=== PATIENT | female | born 1965 | race Caucasian/White ===

== ENCOUNTER → 2018-10-06 14:46 | Outpatient (CLI) | payer OTHER ==
--- NOTE | 2018-10-13 14:51 | ST ---
PATIENT:HEATHER PERALTA MEDICAL RECORD: [id number] SEX: F LOCATION:[facility] ORDER #: ADMISSION DATE: 10/06/18 AGE OF PATIENT: 52 REFERRING PHYSICIAN: INTERPRETING PHYSICIAN: VANDANA GAXIOLA MD DATE OF SERVICE: 10/06/2018 PROCEDURE: Treadmill stress test. Baseline ECG is normal. Exercised for 10 minutes under Magdaleno protocol. Maximum heart rate 150 beats per minute, greater than 95% of maximum predicted. No ECG changes for ischemia. No symptoms of ischemia. Normal blood pressure response to exercise. No arrhythmias noted. Good exercise tolerance for age. TRANSINT:[id number] Voice Confirmation ID: [id number] DOCUMENT ID: [id number] VANDANA GAXIOLA MD at 1451 CC: [id number] DICTATION DATE: 10/12/18 141 ALL ROUND LOGGER: 10/12/180 DEP CLI 10/06/18 [facility] [address] [place] [address]
== END | disposition home or self-care (01) ==
LOC: D.HCCARDIO 14:46
DX: R06.09 Other forms of dyspnea (principal)

== ENCOUNTER 2018-11-09 20:18 | Emergency (ER) | payer OTHER ==
[~2018-11-09] VITALS: Ht 165.1 cm; Wt 75.0 kg
[2018-11-09 20:21] VITALS: Ht 165.1 cm; Wt 75.0 kg
[2018-11-09] MEDS ORDERED: LISINOPRIL5 MG PO (20:21)
[2018-11-09] MEDS ORDERED: LEXAPRO20 MG (20:22)
[2018-11-09] MEDS ORDERED: HCTZ25 MG (20:22)
[2018-11-09] MEDS ORDERED: OMEPRAZOLE20 M1 PO (20:22)
[2018-11-09] MEDS ORDERED: NEURONTIN600 MG PO (20:23)
[2018-11-09] MEDS ORDERED: NAPROSYN500 MG PO (20:23)
[2018-11-09] MEDS ORDERED: HYDROCODON-ACE1 EA10 PO (20:23)
[2018-11-09] MEDS ORDERED: BUPROPION HCL100 MG (20:23)
[2018-11-09] MEDS ORDERED: ACETAMINOPHEN500 M1 PO (21:59)
[2018-11-09] MEDS ORDERED: CYCLOBENZAPRINE10 MG PO (21:59)
[2018-11-09] MEDS ORDERED: IBUPROFEN800 MG PO (21:59)
[2018-11-09 22:42] VITALS: BP 132/79
== END 2018-11-09 22:42 | disposition home or self-care (01) ==
LOC: D.ER 20:18
DX: S46.001A Unspecified injury of muscle(s) and tendon(s) of the rotator cuff of right shoulder, initial encounter (principal); W01.0XXA Fall on same level from slipping, tripping and stumbling without subsequent striking against object, initial encounter; Y93.89 Activity, other specified; Y92.89 Other specified places as the place of occurrence of the external cause

== ENCOUNTER 2018-11-18 14:41 | Inpatient (IN) | payer OTHER ==
[~2018-11-18] VITALS: Ht 165.1 cm; Wt 77.3 kg
[~2018-11-18 14:41] MED LIST: ACETAMINOPHEN500 M1 PO; BUPROPION HCL100 MG; CYCLOBENZAPRINE10 MG PO; HCTZ25 MG; HYDROCODON-ACE1 EA10 PO; IBUPROFEN800 MG PO; LEXAPRO20 MG; LISINOPRIL5 MG PO; NAPROSYN500 MG PO; NEURONTIN600 MG PO; OMEPRAZOLE20 M1 PO
[2018-11-20 10:27] LABS: APPEARANCE CLOUDY (CLEAR); BILIRUBIN NEGATIVE (NEGATIVE); COLOR YELLOW (YELLOW); GLUCOSE NEGATIVE (NEGATIVE); HEMATOCRIT 42.9 % (36.0-48.0); HEMOGLOBIN 14.4 g/dL (12-16); KETONE NEGATIVE (NEGATIVE); MCH 29.1 pg (26.0-34.0); MCHC 33.6 g/dL (31.0-37.0); MCV 86.8 fL (80.0-100.0); MEAN PLATELET VOLUME 9.3 fL (7.4-10.4); NITRITE NEGATIVE (NEGATIVE); PROTEIN NEGATIVE (NEGATIVE); RBC 4.94 10x6/uL (4.00-5.40); RDW 14.6 % (11.5-14.5); SPECIFIC GRAVITY 1.015 (1.005-1.020); UROBILINOGEN NORMAL (NORMAL); WBC 8.9 10x3/uL (4.8-10.8)
[2018-11-20 10:34] LABS: ANION GAP 11.5 mmol/L (8-16); CALCIUM 8.6 mg/dL (8.5-10.1); CARBON DIOXIDE 28.3 mmol/L (21.0-32.0); CREATININE - SERUM 0.9 mg/dL (0.6-1.3); POTASSIUM - SERUM 3.8 mmol/L (3.5-5.1)
[2018-11-20 10:46] LABS: APTT 30.1 SECONDS (22.8-39.4); PROTIME 12.7 SECONDS (11.6-15.0)
[2018-11-23 11:02] VITALS: BP 124/75; BMI 28.3
[2018-11-23 11:21] LABS: HCG URINE NEGATIVE (NEGATIVE)
--- NOTE | 2018-11-23 13:20 | NUR ---
PLASMA BLADE SET AT 6/8 BOVIE PAD RIGHT THIGH [id number] EXP 05/11/2020
--- NOTE | 2018-11-23 14:25 | NUR ---
CARE ASSUMED FROM NATHALY TATE RN
--- NOTE | 2018-11-23 15:19 | NUR ---
1410 - TRANSITIONING PT TO PHASE 2 PROTOCOL. NO BEDS AVAILABLE.
[2018-11-24 01:09] VITALS: Ht 165.1 cm; Wt 77.3 kg
[2018-11-24 04:00] VITALS: BP 97/63
[2018-11-24 05:31] LABS: HEMOGLOBIN 10.8 g/dL (12-16); MCH 28.2 pg (26.0-34.0); MCHC 32.7 g/dL (31.0-37.0); MCV 86.2 fL (80.0-100.0); MEAN PLATELET VOLUME 9.2 fL (7.4-10.4); RBC 3.83 10x6/uL (4.00-5.40); WBC 14.5 10x3/uL (4.8-10.8)
--- NOTE | 2018-11-24 08:00 | NUR ---
PT IS WITHOUT NEEDS AT PRESENT. SHE IS WITHOUT DISTRESS
[2018-11-24 08:27] VITALS: BP 99/43
[2018-11-24] MEDS ORDERED: PERCOCET 10-321 EAC1 PO (11:55)
[2018-11-24] MEDS ORDERED: IBUPROFEN800 MG PO (11:55)
[2018-11-24 12:45] VITALS: BP 122/62
== END 2018-11-24 15:49 | disposition home or self-care (01) | DRG 483 ==
LOC: D.SDCHOLD 11-23 10:30 → D.MS 11-23 10:30 → D.SDCHOLD 11-23 13:00 → D.MS 11-23 20:00
PROVIDERS: Anesthesiology; ADMIT Orthopaedic Surgery; ATTEND Orthopaedic Surgery
PROC: 0RRJ00Z Replacement of Right Shoulder Joint with Reverse Ball and Socket Synthetic Substitute, Open Approach (ICD-10-PCS; principal; 2018-11-23 13:00)
DX: M12.811 Other specific arthropathies, not elsewhere classified, right shoulder (principal); M75.101 Unspecified rotator cuff tear or rupture of right shoulder, not specified as traumatic

== ENCOUNTER → 2018-11-18 16:09 | Outpatient (CLI) | payer OTHER ==
[2018-11-09 20:21] VITALS: BMI 27.5
== END | disposition home or self-care (01) ==
LOC: D.LABREF 16:09
PROVIDERS: ATTEND Orthopaedic Surgery
DX: M19.011 Primary osteoarthritis, right shoulder (principal); Z11.8 Encounter for screening for other infectious and parasitic diseases

== ENCOUNTER → 2019-01-06 16:08 | Outpatient (CLI) | payer OTHER ==
[2018-11-24 01:09] VITALS: BMI 28.3
[~2019-01-06 16:08] MED LIST changes: +PERCOCET 10-321 EAC1 PO
== END | disposition home or self-care (01) ==
LOC: D.MRI 16:08
PROVIDERS: ATTEND Orthopaedic Surgery
DX: S83.232A Complex tear of medial meniscus, current injury, left knee, initial encounter (principal)

== ENCOUNTER 2019-01-22 13:26 | Emergency (ER) | payer OTHER ==
[2019-01-22] MEDS ORDERED: NAPROSYN500 MG PO ×2 (13:33→15:22)
[2019-01-22] MEDS ORDERED: VALIUM 2 MG TAB2 MG PO (15:22)
[2019-01-22 16:20] VITALS: BP 143/79
== END 2019-01-22 16:00 | disposition home or self-care (01) ==
LOC: D.ER 13:26
DX: M62.838 Other muscle spasm (principal); S39.012A Strain of muscle, fascia and tendon of lower back, initial encounter; V43.62XA Car passenger injured in collision with other type car in traffic accident, initial encounter; Y93.89 Activity, other specified; Y92.410 Unspecified street and highway as the place of occurrence of the external cause; S29.012A Strain of muscle and tendon of back wall of thorax, initial encounter; S13.4XXA Sprain of ligaments of cervical spine, initial encounter

== ENCOUNTER → 2019-12-02 08:29 | Outpatient (CLI) | payer OTHER ==
[~2019-12-02 08:29] MED LIST changes: +VALIUM 2 MG TAB2 MG PO
== END | disposition home or self-care (01) ==
LOC: D.NM 08:29
PROVIDERS: ATTEND Orthopaedic Surgery
DX: M25.511 Pain in right shoulder (principal)

== ENCOUNTER → 2019-12-27 09:54 | Outpatient (CLI) | payer OTHER | END | disposition home or self-care (01) | LOC: D.MRI 09:54 | PROVIDERS: ATTEND Orthopaedic Surgery | DX: M54.12 Radiculopathy, cervical region (principal) ==

== ENCOUNTER 2020-02-10 10:20 | Inpatient (IN) | payer OTHER ==
[2020-02-08 12:14] LABS: HEMATOCRIT 41.9 % (36.0-48.0); HEMOGLOBIN 13.8 g/dL (12-16); MCH 28.3 pg (26.0-34.0); MCHC 32.9 g/dL (31.0-37.0); MEAN PLATELET VOLUME 8.7 fL (7.4-10.4); RBC 4.87 10x6/uL (4.00-5.40); RDW 13.9 % (11.5-14.5); WBC 6.2 10x3/uL (4.8-10.8)
[2020-02-08 12:23] LABS: CALC OSMOLALITY 277 mosm/kg (275-300); CALCIUM 9.2 mg/dL (8.5-10.1); CARBON DIOXIDE 32.4 mmol/L (21.0-32.0); CHLORIDE - SERUM 101 mmol/L (98-107); CREATININE - SERUM 0.8 mg/dL (0.6-1.3); GLUCOSE 82 mg/dL (74-106); POTASSIUM - SERUM 3.7 mmol/L (3.5-5.1); SODIUM 139 mmol/L (136-145); UREA NITROGEN 14 mg/dL (7-18); eGFR NON AFRICAN AMERICAN 79 mL/min (90-120)
[~2020-02-10] VITALS: Ht 165.1 cm; Wt 81.5 kg
[2020-02-10] VITALS (13 sets, daily range): BP systolic 96–133; BP diastolic 65–81; BMI 30.5; BMI 29.9
[~2020-02-10 10:20] MED LIST changes: -BUPROPION HCL100 MG; +BUPROPION HCL100 MG PO; -HCTZ25 MG; +HCTZ25 MG PO; -LEXAPRO20 MG; +LEXAPRO20 MG PO
[2020-02-10 11:51] LABS: HCG URINE NEGATIVE (NEGATIVE)
--- NOTE | 2020-02-10 16:21 | NUR ---
PT ARRIVED IN THE UNIT. PT HOOKED TO ICU MONITORS. VSS. PACU NURSE WITH THE PT FOR ABOUT 1 HOUR. LEFT ANTERIOR NECK INCISION AND MIDLINE POSTEIOR NECK INCISION DRESSING C/D/I. SMILE SYMITRICAL. BILATERAL UPPER AND LOWER TOWEL CABINET REPAIRER EQUAL. PT DENIES NUMBNESS/PAIN AT THIS TIME. TRACHEA MIDLINE. CALL LIGHT IN REACH. WILL CONT POC.
--- NOTE | 2020-02-10 17:00 | NUR ---
NOTIFIED PTS CAROLE OF NEW ROOM AND LOCATION. PT STABLE RESTING QUIETLY IN BED, TOLERATING ICE CHIPS. NO FURTHER PACU NEEDS, WILL PASS ON BEDSIDE REPORT TO MOHIT LEE.
--- NOTE | 2020-02-10 17:58 | NUR ---
PT TOLERATING ICE CHIPS WELL. NEUROCHECKS SAME PREVIOUS EXAM. WILL CONT POC.
--- NOTE | 2020-02-10 19:00 | NUR ---
REPORT RECEIVED. PT RESTING IN BED, NO ACUTE DISTRESS NOTED. INCISION SITES CDI. AAOX4, WILL CONTINUE TO MONITOR.
[2020-02-11] VITALS (11 sets, daily range): BP systolic 86–115; BP diastolic 59–69; Ht 165.1 cm; Wt 81.5 kg
--- NOTE | 2020-02-11 05:57 | NUR ---
2100 - PT RESTING IN BED, NO ACUTE DISTRESS NOTED. 2300 - REASSESSMENT COMPLETED. DRESSING CDI. 0100 - PT RESTING QUIETLY IN BED, WILL CONTINUE TO MONITOR. 0300 - REASSESSMENT COMPLETED. NO FURTHER COMPLAINTS AT THIS TIME. 0500 - PT SITTING UP IN BED, AAOX4. PT STATES FEELING "MUCH BETTER NOW."
--- NOTE | 2020-02-11 11:37 | NUR ---
0700 BEDSIDE REPORT RECEIVED FROM ROBIN RN INTRODUCED MYSELF AND PLACED NAME ON THE BOARD ASSESSMENT COMPLETE
--- NOTE | 2020-02-11 11:39 | NUR ---
1000 D/C GORDON UP TO BEDSIDE COMMODE WITH STANDBY ASSIST VOIDED 200 ML REPORT CALLED TO [facility] NURSE FOR ROOM [id number]
--- NOTE | 2020-02-11 11:41 | NUR ---
2907 TRANSPORTED PATIENT TO [facility] 2010
[2020-02-12 04:00] VITALS: BP 138/79
--- NOTE | 2020-02-12 08:00 | NUR ---
ALERT AND ORIENTED WITH DRESSING DRY AND INTACT TO ANTERIOR AND POSTERIOR CERVICAL SPINE. PAIN 8/10 MANAGED WITH NORCO ALTERMATING WITH MORPHINE.IV INTACT TO LEFT WRIST WITH NO S/S OF INFECTION/INFILTRATION. ENCOURAGED TO USE CALL LIGHT FOR ASSSIT. WITH BENCH WORKER HELPER PRESENT
[2020-02-12 08:27] VITALS: BP 167/52
[2020-02-12] MEDS ORDERED: TYLENOL W/CODEI1 TAB PO (09:04)
[2020-02-12] MEDS ORDERED: MEDROL DOSE PACK4 MG PO (10:21)
--- NOTE | 2020-02-12 11:15 | NUR ---
IV DISCONTINUED WITH DRESSING CHANGED TO POSTERIOR CERVICAL DRESSING WITH DEIRDRE INTACT W/O ANY S/S OF INFECTION. PATIENT DRESSED SELF AND UP AMBULATING STATING PAIN BETTER 3/10. VERBALIZD UNDERSTANDING OF DISCHARGE INSTRUCTIONS UNDER CARE OF CAREGIVER.
--- NOTE | 2020-02-12 19:19 | MORECARE ---
CASE MANAGEMENT DISCHARGE SUMMARY PATIENT: HETAHER NOLAN UNIT: [id number] ADM DATE: 02/10/20 AGE: 54 : 65 SEX: F ROOM/BED: D.2229 AUTHOR: FIDELINA THOMSON PHYSICIAN: REFERRING PHYSICIAN: GABRIELE JIMENEZ MD DATE OF SERVICE: 02/12/20 Discharge Plan Patient Name: HEATHER NOLAN Facility: [facility]:[place] : 1965 Planned Disposition: Home Anticipated Discharge Date: Discharge Date: 02/12/2020 Expected LOS: Initial Reviewer: [email or web address] Initial Review Date: 02/11/2020 Generated: 02/12/20 8:18 pm Comments DCP- Discharge Planning Updated by [email or web address]: Lucía Green on 02/12/20 6:[address] Patient Name: HEATHER NOLAN Admission Status: Elective Accout number: [id number] Admission Date: 02-10-2020 : 1965 Admission Diagnosis:RADICULOPATHY, CERVICAL REGION Attending: GABRIELE JIMENEZ Current LOS: 2 Anticipated DC Date: Planned Disposition: Home Primary Insurance: [employer] Discharge Planning Comments: CM met with patient to complete initial dc planning assessment. CM educated patient on the CM role and verbal consent given by patient to complete assessment. Patient lives at home with family. Patient is independent. At discharge patient plans to return home and feels this is a safe discharge. CM discussed availability of home health, rehab services, and medical equipment. Patient will have family to transport home. Patient denied known discharge needs at this time. CM will continue to follow and will assist as needed with dc plans/needs. Dehydrogenation Converter Helper: Lucía Green DCPIA - Discharge Planning Initial Assessment Updated by [email or web address]: Lucía Green on 02/12/20 7:15 pm * Is the patient Alert and Oriented? Yes * How many steps to enter\exit or inside your home? 4-5 * PCP gabriel * Pharmacy [facility] * Preadmission Environment Home with Family * ADLs Independent * Equipment None * List name and contact numbers for known caregivers / representatives who currently or will assist patient after discharge: Trip Nolan - [facility] - [phone] * Verbal permission to speak to the caregivers and representatives has been obtained from the patient. No * Community resources currently utilized None * Additional services required to return to the preadmission environment? No * Can the patient safely return to the preadmission environment? Yes * Has this patient been hospitalized within the prior 30 days at any hospital? No Patient Name: HEATHER NOLAN Page [id number] at 1919 All edits/amendments must be made on the electronic document DICTATION DATE: 02/12/201917 KEEL PRESS OPERATOR: CHILANGO 02/12/201917 RPT#: [id number] DC DATE:02/12/20 STATUS: DIS IN [facility] [address] [place] [address] END OF REPORT
--- NOTE | 2020-02-15 13:10 | OP ---
PATIENT NAME: HEATHER PERALTA MEDICAL RECORD: [id number] :65 LOCATION:[id number] ADMISSION DATE:02/10/20 SURGEON: GABRIELE JIMENEZ MD DATE OF OPERATION: 02/10/2020 PREOPERATIVE DIAGNOSES: Cervical radiculopathy at C5 and C6 and C7, osteophyte and disc protrusion at C4- 5, cervical foraminal stenosis at C5-6 and C6-7 - right. POSTOPERATIVE DIAGNOSES: Cervical radiculopathy at C5 and C6 and C7, osteophyte and disc protrusion at C4- 5, cervical foraminal stenosis at C5-6 and C6-7 - right. PROCEDURE: 1. Anterior cervical discectomy and fusion at C4-C5 with Zavation anterior cervical plate and screws, which was separate from the PEEK interbody cage and bone stem cells with removal of osteophytes. 2. Through a separate incision posteriorly, posterior cervical foraminotomy at C5-6 and C6-C7 on the right. SURGEON: Gabriele Jimenez MD WASTEWATER T[employer]ATMENT PLANT SUPERVISOR: Garrick Ramos. DESCRIPTION AND TECHNIQUE: After induction of general endotracheal anesthesia, the patient was placed supine on the operating table. Neck was prepped and draped in usual sterile fashion. Fluoroscopic x-ray and freer localized the C4-C5 interspace. After infiltration of 1:100,000 epinephrine and 1% lidocaine, a transverse skin incision was carried out from the midline to the sternocleidomastoid muscle. The platysma was divided with sharp dissection with a #15 blade. Using blunt and sharp dissection with Metzenbaum scissors, I proceeded in an avascular plane medial to the carotid sheath. The C4-C5 interspace was identified with a spinal needle and fluoroscopic x-ray. Following this, longus colli muscles were elevated from bodies of C4 and C5. Self-retaining retractor was placed deep to the longus colli muscles. Bruce distracting pins were placed in the bodies of C4 and C5. The annulus was incised and pituitary rongeurs and curettes were used to remove the cartilaginous endplate and remove the disc material. Under microscopic illumination osteophytes were drilled away posteriorly with Midas-Cristian drill. The posterior longitudinal ligament was removed with Cloward rongeurs. Following this, the dura was decompressed well. A separate PEEK interbody cage was placed in the disc space under distraction. Prior to this, it was filled with Swati bone allograft at separate anterior cervical plate and screws. This was used to span C4-C5 interspace. Self-drilling screws with variable angle were placed through the holes in the plate. Locking cams were tightened down over the screw heads. Good position of the hardware was confirmed with fluoroscopic x-ray. Meticulous hemostasis was maintained throughout the wound. Wound was irrigated with copious amounts of Ancef irrigant solution. The platysma and subdermal layer closed with interrupted 4-0 Vicryl suture. The skin was reapproximated with Steri-Strips and benzoin. A sterile dressing was applied to the wound. The patient was awakened in good condition and taken to recovery. All counts were reported as correct. ESTIMATED BLOOD LOSS: Minimal. OPERATIVE REPORT [id number] HEATHER PERALTA Second part, the patient was placed in Rivas head pins and rolled prone on chest and hip rolls. The posterior neck was prepped and draped in usual sterile fashion. A Fluoroscopic x-ray and spinal needle localized the C5-C6 interspace on the right side. After infiltration 1:100,000 epinephrine and 1% lidocaine, a midline skin incision was carried out with a #11 blade. Using Bovie cautery, the spinous processes and lamina of C5, C6, and C7 as well as the medial facets were exposed. On the right side, a Manpreet self-retaining retractor was used to maintain exposure. The fluoroscopic x-ray and nerve hook confirmed the C5-C6 interspace. Following this, a microscope and Midas Cristian drill were used to perform laminotomy, medial facetectomy, and foraminotomy at C5-6 and C6-C7 on the right. Hypertrophied ligamentum flavum was removed with Cloward rongeurs. Following this, the C6 and C7 nerve roots were decompressed well. Meticulous hemostasis was maintained throughout the wound. The wound was irrigated with copious amounts of Ancef irrigant solution. The fascia was closed with 2-0 Vicryl suture. The subdermal layer was closed with 3-0 Vicryl suture. The skin was closed with gini. A sterile dressing was applied to the wound. The patient was awakened in good condition and taken to recovery. All counts were reported as correct. Estimated blood loss was minimal. TRANSINT:[id number] Voice Confirmation ID: [id number] DOCUMENT ID: [id number] GABRIELE JIMENEZ MD at 1310 CC: [id number] DICTATION DATE: 02/14/20906 TONNAGE COMPILATION CLERK: 02/14/202022 DIS IN 02/12/20 [place] [id number] [place] [id number]
== END 2020-02-12 11:15 | disposition home or self-care (01) | DRG 30 ==
LOC: D.OPS 10:20 → D.PAN 14:00 → D.OPS 14:00 → D.PAN 14:05 → D.OPS 14:05 → D.PAN 15:50 → D.ICU 17:04 → D.OPS 23:50 → D.ICU 23:50 → D.MS 02-11 12:11
PROVIDERS: Anesthesiology; ADMIT Neurological Surgery; ATTEND Neurological Surgery
PROC: 0RG10A0 Fusion of Cervical Vertebral Joint with Interbody Fusion Device, Anterior Approach, Anterior Column, Open Approach (ICD-10-PCS; principal; 2020-02-10 12:30)
PROC: 0RB30ZZ Excision of Cervical Vertebral Disc, Open Approach (ICD-10-PCS; 2020-02-10 12:30)
DX: M54.12 Radiculopathy, cervical region (principal); M48.02 Spinal stenosis, cervical region; E55.9 Vitamin D deficiency, unspecified; F32.9 Major depressive disorder, single episode, unspecified; I10 Essential (primary) hypertension; E78.5 Hyperlipidemia, unspecified

== ENCOUNTER 2020-10-06 06:20 | Day surgery (SDC) | payer OTHER ==
[2020-09-29 15:34] LABS: BASOPHILS 0.4 % (0-2); EOSINOPHILS 2.3 % (0-7); HEMATOCRIT 44.2 % (36.0-48.0); HEMOGLOBIN 14.5 g/dL (12-16); IMMATURE GRANULOCYTES 0.2 % (0-5); LYMPHOCYTE ABS# 2.01 10x3/uL (1.18-3.74); MCH 28.5 pg (26.0-34.0); MCHC 32.8 g/dL (31.0-37.0); MCV 86.8 fL (80.0-100.0); MONOCYTES 10.4 % (2-11); NEUTROPHIL ABS# 5.26 10x3/uL (1.56-6.13); NEUTROPHILS 62.7 % (40-80); RBC 5.09 10x6/uL (4.00-5.40); RDW 13.8 % (11.5-14.5); WBC 8.4 10x3/uL (4.8-10.8)
[2020-09-29 15:47] LABS: ANION GAP 12.2 mmol/L (8-16); CARBON DIOXIDE 28.6 mmol/L (21.0-32.0); POTASSIUM - SERUM 3.8 mmol/L (3.5-5.1)
[2020-09-29 15:59] LABS: PLATELET COUNT 251 10x3/uL (130-400)
[~2020-10-06] VITALS: Ht 165.1 cm; Wt 86.6 kg
--- NOTE | ~2020-10-06 | OP ---
PATIENT NAME: HEATHER PERALTA MEDICAL RECORD: [id number] :65 LOCATION:[facility] ADMISSION DATE: SURGEON: GABRIELE JIMENEZ MD DATE OF OPERATION: 10/06/2020 DATE OF SERVICE: 10/06/2020 PREOPERATIVE DIAGNOSES: Lumbar spinal stenosis with foraminal stenosis at L4-L5 at right with left L4-L5 foraminal stenosis. POSTOPERATIVE DIAGNOSES: Lumbar spinal stenosis with foraminal stenosis at L4-L5 at right with left L4-L5 foraminal stenosis. PROCEDURES: Lumbar laminectomy L4-L5 at right with METRx retractor was sublaminar decompression L4-L5 at left with METRx retractor and microscope. SURGEON: Gabriele Jimenez MD DESCRIPTION OF PROCEDURE: After induction of general endotracheal anesthesia, the patient was rolled prone on a Rojas frame. Lumbar spine was prepped and draped in the usual sterile fashion. Fluoroscopic x-ray and spinal needle localized the L4-L5 interspace on the right side. A stab incision was created with a #11 blade. A series of dilators was used to advance a METRx retractor to the L4-L5 interspace on the right side that was confirmed with fluoroscopic x-ray. A microscope and Midas Cristian drill were used to perform a laminectomy, medial facetectomy, and foraminotomy at L4-L5 on the right. Hypertrophied ligamentum flavum was removed with Cloward rongeurs. This decompressed the L4 and L5 nerve roots on the right side well. The spinous process of L4 was undermined with a Midas Cristian drill. The ligamentum flavum was removed within the central canal in the opposite foramen under microscopic illumination with a Cloward rongeurs. Following this, the left L4 and L5 nerve roots were decompressed as well. Meticulous hemostasis was maintained throughout the wound. The wound was irrigated with copious amounts of Ancef irrigant solution. The fascia was closed with 2-0 Vicryl suture. Subdermal layer was closed with 3-0 Vicryl suture. The skin was closed with gini. Sterile dressing was applied to the wound. The patient was awakened in good condition and taken to recovery. All counts were reported as correct. ESTIMATED BLOOD LOSS: Minimal. TRANSINT:[id number] Voice Confirmation ID: [id number] DOCUMENT ID: [id number] GABRIELE JIMENEZ MD CC: [id number] DICTATION DATE: 10/18/20 1252 ENERGY AUDITOR: 10/18/20 1313 [facility] 10/06/20 [place] [id number] [place] [id number]
[~2020-10-06 06:20] MED LIST changes: +MEDROL DOSE PACK4 MG PO; +TYLENOL W/CODEI1 TAB PO; +ZOCOR20 MG PO
[2020-10-06] MEDS ORDERED: CYCLOBENZAPRINE10 MG PO (06:56)
[2020-10-06] MEDS ORDERED: HYDROCODONE-AC1 EAC2 PO (06:56)
[2020-10-06 06:57] VITALS: BP 152/82; Ht 165.1 cm; Wt 86.6 kg
[2020-10-06] MEDS ORDERED: HYDROCODON-ACE1 EA10 PO (11:43)
[2020-10-06] MEDS ORDERED: MEDROL DOSE PACK4 MG PO (11:43)
--- NOTE | 2020-10-06 12:08 | NUR ---
PT. STATED "MY FEET AND LEGS ALREADY FEEL BETTER"
--- NOTE | 2020-10-06 14:07 | NUR ---
1345 IV REMOVED 1340 VOIDED X1 WALKS W/O DIFFICULTY. 1355 MEDICATED NAUSEA
== END 2020-10-06 13:55 | disposition home or self-care (01) ==
LOC: D.OPS 06:20
PROVIDERS: Anesthesiology; ATTEND Neurological Surgery
DX: M48.061 Spinal stenosis, lumbar region without neurogenic claudication (principal); I10 Essential (primary) hypertension